=== PATIENT | male | born 1975 | race Two or more races ===

== ENCOUNTER 2021-08-07 09:45 | Inpatient (IN) | payer OTHER ==
[2021-08-07] MEDS ORDERED: PROTONIX20 MG (15:22)
== END 2021-08-13 20:20 | disposition home or self-care (01) | DRG 331 ==
LOC: SURH 08-09 06:03 → O/R 08-09 06:03 → SURH 08-09 07:00
PROVIDERS: ADMIT Colon & Rectal Surgery; ATTEND Colon & Rectal Surgery
PROC: 07BB4ZZ Excision of Mesenteric Lymphatic, Percutaneous Endoscopic Approach (ICD-10-PCS; 2021-08-09)
PROC: 4A1635H Monitoring of Lymphatic Flow using Indocyanine Green Dye, Percutaneous Approach (ICD-10-PCS; 2021-08-09)
PROC: 0DTF4ZZ Resection of Right Large Intestine, Percutaneous Endoscopic Approach (ICD-10-PCS; principal; 2021-08-09 07:00)
DX: C18.2 Malignant neoplasm of ascending colon (principal); K63.5 Polyp of colon; R59.0 Localized enlarged lymph nodes; R13.19 Other dysphagia